=== PATIENT | male | born 1955 | race Caucasian/White ===

== ENCOUNTER 2023-12-01 14:36 | Emergency (ER) | payer MEDICARE, OTHER ==
[~2023-12-01] VITALS: Ht 182.9 cm; Wt 106.6 kg
[2023-12-01] MEDS ORDERED: ADENOSINE 6 MG/2 ML VIAL ONE (14:48)
[2023-12-01] MEDS ORDERED: ADENOSINE 6 MG/2 ML VIAL IVP ONE (14:55)
[2023-12-01] MEDS ORDERED: METOPROLOL SUCCINATE 25 MG TAB.SR.24H ONE (15:08)
[2023-12-01] MEDS ORDERED: METOPROLOL SUCCINATE 50 MG TAB.SR.24H PO SCH (15:30)
[2023-12-01] MEDS: IV NS 0.9% 1,000 ML BAG IV ONE (15:49)
[2023-12-01 17:09] VITALS: BP 116/80; TEMP 98.4; O2SAT 96
== END 2023-12-01 17:10 | disposition home or self-care (01) ==
LOC: ER 14:49
DX: I47.10 Supraventricular tachycardia, unspecified (principal); I10 Essential (primary) hypertension; Z88.0 Allergy status to penicillin
CPT/HCPCS: 99283; 96374; 96361; 93005; J0153; J7030; J1885